=== PATIENT | female | born 1970 | race Caucasian/White ===

== ENCOUNTER 2018-01-04 14:09 | Observation (INO) | payer OTHER, SELFPAY ==
[2018-01-04] MEDS ORDERED: Nitroglycerin 0.4 MG TAB (25 Tab Bottle) ONE (14:50)
[2018-01-04 14:53] LABS: #Basophils 0.1 thou/uL (0.0-0.2); #Eosinphils 0.1 thou/uL (0.0-0.7); #Lymphocytes 3.4 thou/uL (1.20-3.40); #Monocytes 0.4 thou/uL (0.11-0.59); #Neutrophils 4.6 thou/uL (1.40-6.50); %Basophils 1.3 % (0.0-1.0); %Eosinophils 1.4 % (0.0-10.0); %Lymphocytes 39.4 % (21.0-51.0); %Monocytes 4.8 % (0.0-10.0); %Neutrophils 53.1 % (42.0-75.0); Hemoglobin 14.5 g/dL (12.0-16.0); Mean Corpuscular HGB CONC 33.6 g/dL (32.0-36.0); Mean Corpuscular Volume 89.2 fl (81.0-99.0); Mean Platelet Volume 8.1 fL (7.4-10.4); Platelet Count 247 thou/uL (130-400); RBC Distribution Width 10.8 % (11.5-14.5); Red Blood Cell (RBC) Count 4.84 mill/uL (4.20-5.40); White Blood Cell (WBC) Count 8.7 thou/uL (4.8-10.8)
[2018-01-04 14:56] LABS: Prothrombin Time 13.4 SEC (12.0-14.7)
[2018-01-04 14:58] LABS: D-Dimer Test Less than 0.27 *mcg/mL (0.27-0.43)
[2018-01-04 15:06] LABS: ALT (SGPT) 37 U/L (8-55); AST (SGOT) 28 U/L (5-34); Albumin 3.7 g/dL (3.5-5.0); Alkaline Phosphatase 75 U/L (40-150); Anion Gap 17 mmol/L (10-20); BUN (Urea Nitrogen) 15 mg/dL (7.0-18.7); Bilirubin, Total 0.6 mg/dL (0.2-1.2); Calc. Creatinine Clearance 0 mL/min (70-130); Calcium 9.3 mg/dL (7.8-10.44); Carbon Dioxide 21 mmol/L (22-29); Chloride 104 mmol/L (98-107); Estimated GFR-MDRD 64; Globulin 4.1 g/dL (2.4-3.5); Glucose 210 mg/dL (70-105); Potassium 4.2 mmol/L (3.5-5.1); Protein, Total 7.8 g/dL (6.0-8.3); Sodium 138 mmol/L (136-145)
[2018-01-04 15:07] LABS: CKMB 1.2 ng/mL (0-6.6); Troponin I Less than 0.010 ng/mL (< 0.028)
--- NOTE | 2018-01-04 15:11 | RAD ---
PORTABLE AP CHEST X-RAY: 01/04/2018 HISTORY: Chest pain. COMPARISON: 07/10/2015 FINDINGS: The cardiac silhouette and pulmonary vasculature are within normal limits. The lungs are clear. The re has been no interval change from prior exam. IMPRESSION: No acute cardiopulmonary process. POS: [facility]
[2018-01-04] MEDS ORDERED: Ondansetron ODT 4 MG TAB SL PRN (17:11)
[2018-01-04] MEDS ORDERED: Acetaminophen 325 MG TAB PO PRN ×2 (17:11→19:41)
[2018-01-04] MEDS ORDERED: Ondansetron HCl/PF 4 MG/2 ML Vial IVP PRN ×2 (17:11→19:41)
[2018-01-04 17:52] VITALS: BMI 32.1
--- NOTE | 2018-01-04 18:44 | PDOC.FPRHP ---
- History of Present Illness Chief Complaint: chest pain History of Present Illness: pt seen @ 1900 47 yo F presents w/ approx 2 day h/o of intermittent centrally located chest pain that is worse with movement and lifting, is pressure like to burning in nature with some associated mild SOB, nausea and occasional palpitations. 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 She has not tried any medications for the pain. She reports tenderness to palpation over left side of sternum. Denies associaded diaphoresis, syncope, increased swelling, fever, chills, sweats, productive cough. Denies recent illness. ED Course: Aspirin 324mg Nitrostat X1 - Allergies/Adverse Reactions Allergies Allergy/AdvReac Type Severity Reaction Status Date / Time No Known Allergies Allergy Verified 01/17/15 15:55 - Home Medications Medication Instructions Recorded Confirmed Type No Known [No Known] 01/04/18 01/04/18 History - History PMHx: HTN PSHx: Tubal ligation, spinal fusion, appendectomy FHx: None Social: Denies tobacco, alcohol and drug use - Review of Systems General: reports: fatigue. denies: fever/chills, weight/appetite/sleep changes Eyes: reports: vision changes. denies: eye pain ENT: denies: nasal congestion, rhinorrhea Respiratory: reports: cough, shortness of breath, exercise intolerance. denies : congestion Cardiovascular: reports: chest pain, palpitation. denies: edema, orthopnea Gastrointestinal: reports: nausea. denies: vomiting, diarrhea, constipation, abdominal pain Genitourinary: denies: dysuria Skin: denies: rashes, lesions Musculoskeletal: denies: pain, tenderness, swelling, arthritis/arthralgias Neurological: reports: weakness. denies: numbness, syncope - Vital signs BP: 184/98 HR: 103 RR: 22 Tmax: 98.3 Pox: 95% on RA Wt: 95Kg - Physical Exam Constitutional: NAD, awake, alert and oriented, well developed HEENT: normocephalic and atraumatic, PERRLA, EOMI, conjunctiva clear, no scleral icterus, grossly normal vision, grossly normal hearing, MMM, oropharynx clear Neck: supple, FROM, trachea midline, no LAD, no JVD, no thyromegaly, no bruits Heart: RRR, normal S1/S2, pulses present, no edema, other (1-2/6 TANK) Lungs: CTAB, no respiratory distress, good air movement, no rales/rhonchi, no wheezing, no retractions Abdomen: soft, non-tender, bowel sounds present, no masses/distention Musculoskeletal: normal structure, normal tone, ROM grossly normal Neurological: no focal deficit Skin: good turgor, capillary refill <2 seconds Psychiatric: normal mood and affect FMR H&P: Results - Labs Result Diagrams: 01/05/18 04:16 01/05/18 04:16 Lab results: WBC 8.7 thou/uL (4.8-10.8) 01/04/18 14:45 Hgb 14.5 g/dL (12.0-16.0) 01/04/18 14:45 Hct 43.2 % (36.0-47.0) 01/04/18 14:45 MCV 89.2 fl (81.0-99.0) 01/04/18 14:45 Plt Count 247 thou/uL (130-400) 01/04/18 14:45 Neutrophils % 53.1 % (42.0-75.0) 01/04/18 14:45 Sodium 138 mmol/L (136-145) 01/04/18 14:45 Potassium 4.2 mmol/L (3.5-5.1) 01/04/18 14:45 Chloride 104 mmol/L (98-107) 01/04/18 14:45 Carbon Dioxide 21 mmol/L (22-29) L 01/04/18 14:45 BUN 15 mg/dL (7.0-18.7) 01/04/18 14:45 Creatinine 0.93 mg/dL (0.6-1.1) 01/04/18 14:45 Glucose 210 mg/dL (70-105) H 01/04/18 14:45 Calcium 9.3 mg/dL (7.8-10.44) 01/04/18 14:45 Total Bilirubin 0.6 mg/dL (0.2-1.2) 01/04/18 14:45 AST 28 U/L (5-34) 01/04/18 14:45 ALT 37 U/L (8-55) 01/04/18 14:45 Alkaline Phosphatase 75 U/L (40-150) 01/04/18 14:45 CK-MB (CK-2) 1.2 ng/mL (0-6.6) 01/04/18 14:45 B-Natriuretic Peptide Less than 10.0 pg/mL (0-100) 01/04/18 14:50 Serum Total Protein 7.8 g/dL (6.0-8.3) 01/04/18 14:45 Albumin 3.7 g/dL (3.5-5.0) 01/04/18 14:45 Laboratory Tests 01/04/18 01/04/18 14:45 14:45 D-Dimer Less than 0.27 L Troponin I Less than 0.010 - EKG Interpretation EKG: No STEMI. Sinus tachycardia. Nonspecific st abnormalities. - Radiology Interpretation Chest x-ray Status: report reviewed by me (No acute disease.) FMR H&P: A/P - Problem List (1) Chest pain Current Visit: No Status: Acute Code(s): R07.9 - CHEST PAIN, UNSPECIFIED (2) Hypertension Current Visit: Yes Status: Suspected Code(s): I10 - ESSENTIAL (PRIMARY) HYPERTENSION (3) Diabetes mellitus type 2 in obese Current Visit: Yes Status: Suspected Code(s): E11.69 - TYPE 2 DIABETES MELLITUS WITH OTHER SPECIFIED COMPLICATION; E66.9 - OBESITY, UNSPECIFIED - Plan 1) Chest pain - typical cp 3/3 ray criteria - Pt had cardiac cath in 2014 which was negative - EKG negative, initial troponin negative - will admit for cp obs - trend troponins X 3 - check TSH, mag, phos, AM FLP - 1-2/6 TANK on PE with CP: will get cardiac echo and cardiac stress - previous h/o htn controlled with lisinopril which was dc'd as pt lost 30 pounds and was diet controlled, elevated pressures recorded in ED, consider restarting anti-htn medication in am, monitor pressures overnight 2) HTN: - see #1 - consider restarting lisinopril 3) DMII, suspected - pt reports she has not eaten anything today and has decreased appetite - random BS 210, will check A1c and treat accordingly Disposition/LOS: stable, </= 2 days. Symptomatic meds will be provided. FMR H&P: Upper Level - Pertinent history Patient is a 47yo CF with PMHx of HTN and previously on Lisinopril who was transferred here from [facility] due to chest pain. She reports that she has had mid-sternum chest pain for the past few days, but today it worsened. Describes it as a tightening pressure with radiation to her LT shoulder and associated with shortness of breath and nausea. CP lasted about 30sec to a min and worsened with exertion and relieved with rest. Given nitro SL with relief of symptoms. States she has had CP before but this felt different. Looking over records, she had a normal stress test on 01/2015 and a normal cath on 07/2015. Of note, she also has CP worsened with deep inspiration and cough but that chest pain is different than what she had earlier. Endorses nausea, slight LARKIN and cough that started yesterday. Denies any fever, chills, congestion, vomiting, weakness, numbness or tingling. Patient has not seen a physician in about 5 yrs due to lack of insurance. - Pertinent findings Gen: no acute distress HEENT: MMM Heart: S1 S2, RRR, TTP at mid-sternum but not reproducible as CP earlier was different Lungs: CTAB Abd: soft, nt/nd/bs+ Ext: no cyanosis or edema - Plan Date/Time: 01/04/181841 Clint Maguire, have evaluated this patient and agree with findings/plan as outlined by internal control analyst resident. Pertinent changes/additions are listed here. 1. Typical chest pain: Place on obs to tele. Initial troponin was negative. Cont to trend q3H. Repeat EKG in AM. Risk stratify with Mg, Phos, TSH and FLP. Cont ASA and nitro prn pain. HEART score of 4. Plan for nuclear stress test in AM. 2. Elevated glucose: no dx of diabetes with last A1c of 6.3% on 07/2015. Obtain A1c. Patient also with metabolic syndrome meeting 4/5 criteria based on lipid panel done in 2014. 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 3. Elev BPs and hx of HTN: previously on Lisinopril 10mg BID. Lost about 30lbs of weight 3yrs ago and was able to stop medication. States however that she has gained all her weight back. Cont to monitor and consider adding Lisinopril if BPs cont to be uncontrolled. 4. Diet: HH/CC and NPO at ID. 5. PPx: SCDs 6. Code Status: Full. Attending Addendum - Attending Addendum Date/Time: 01/05/18 0759 I personally evaluated the patient and discussed the management with Dr. Munoz and Dylan. Seen on 01/04. I agree with the History, Examination, Assessment and Plan documented above with any addition or exceptions noted below. See my event note.
[2018-01-04 18:55] LABS: Troponin I 0.015 ng/mL (< 0.028)
[2018-01-04] MEDS ORDERED: Nitroglycerin 0.4 MG TAB (25 Tab Bottle) PO PRN (19:41)
[2018-01-04] MEDS ORDERED: Ondansetron ODT 4 MG TAB PO PRN (19:41)
[2018-01-04 20:54] LABS: Hemoglobin A1c 7.2 % (4.0-6.0)
--- NOTE | 2018-01-04 20:56 | PDOC.EVN ---
Event Note - Event Note Event Note: Attending note. Pt with 3 day h/o chest pain. Squeezing/tightness, mild-mod, worse with exertion but started at rest on Thursday. Associated nausea, no diaphoresis. Feels somewhat similar to previous episodes but a bit more intense. She is currently chest pain free. No associated numbness or weakness. She has had general fatigue and irritability. Past med/surg/fam hx reviewed. Denies PAOLO. Meds and allergies reviewed A/P: Chest pain -neg cath in 2014 -will stress -consider cards consultation in AM -low suspicion for PE, AD, PTX, other Obesity -counseled diet, exercises H/o HTN -monitor Send for lipid panel, A1c. DVT and GI ppx.
[2018-01-04] MEDS: Famotidine 20 MG TAB PO SCH (20:57)
[2018-01-04] MEDS ORDERED: Lisinopril 10 MG TAB PO SCH (21:00)
[2018-01-04 21:17] LABS: Troponin I Less than 0.010 ng/mL (< 0.028)
[2018-01-05 05:13] LABS: Anion Gap 10 mmol/L (10-20); BUN (Urea Nitrogen) 15 mg/dL (7.0-18.7); Calc. Creatinine Clearance 130 mL/min (70-130); Calcium 8.5 mg/dL (7.8-10.44); Carbon Dioxide 25 mmol/L (22-29); Cardiac Risk 5.5 (Less than 4.5); Chloride 107 mmol/L (98-107); Cholesterol 187 mg/dl (< 200 Desired); Estimated GFR-MDRD 77; Glucose 186 mg/dL (70-105); HDL Cholesterol 34 mg/dL (>60 Neg Risk); LDL Cholesterol, Calculated 123 mg/dL; Phosphorus 3.8 mg/dL (2.3-4.7); Sodium 138 mmol/L (136-145); Triglycerides 149 mg/dL (Less than 150)
[2018-01-05 05:29] LABS: Eosinophils 1 % (0-10); Hemoglobin 12.9 g/dL (12.0-16.0); Lymphocytes 57 % (21-51); MDiff Complete? YES; Mean Corpuscular HGB CONC 32.8 g/dL (32.0-36.0); Mean Corpuscular Hemoglobin 30.4 pg (27.0-31.0); Mean Corpuscular Volume 92.7 fl (81.0-99.0); Mean Platelet Volume 7.2 fL (7.4-10.4); Monocytes 6 % (0-10); Neutrophil 35 % (42-75); PLT Morphology Comment Appears Adequate; Platelet Count 215 thou/uL (130-400); RBC Distribution Width 10.8 % (11.5-14.5); Red Blood Cell (RBC) Count 4.26 mill/uL (4.20-5.40); White Blood Cell (WBC) Count 7.2 thou/uL (4.8-10.8)
--- NOTE | 2018-01-05 08:52 | PDOC.FM ---
- Objective Vital Signs & Weight: Vital Signs (12 hours) Temp Pulse Resp BP BP Pulse Ox 01/05/18 11:28 85 16 141/65 H 95 01/05/18 08:27 97.7 F 72 16 163/77 H 98 01/05/18 08:00 97.7 F 85 16 01/05/18 04:00 98.0 F 71 20 167/83 H 96 Weight Weight 95.708 kg I&O: 01/04/18 01/05/18 01/06/18 06:59 06:59 06:59 Intake Total 385 120 Output Total 400 Balance -15 120 Result Diagrams: 01/05/18 04:16 01/05/18 04:16 <Osiel Krueger - Last Filed: 01/05/18 11:58> - Subjective Subjective: THis morning patient states she slept well overnight. She states she still had 4 /10 squeezing chest pain with exertion overnight. She denies nausea, vomiting, or diaphoresis. She states that occassionally the chest pain comes on at rest but most often is related to exertion. - Objective Vital Signs & Weight: Vital Signs (12 hours) Temp Pulse Resp BP Pulse Ox 01/05/18 04:00 98.0 F 71 20 167/83 H 96 Weight Weight 95.708 kg I&O: 01/04/18 01/05/18 01/06/18 06:59 06:59 06:59 Intake Total 385 Output Total 400 Balance -15 Result Diagrams: 01/05/18 04:16 01/05/18 04:16 <Kareem Bennett - Last Filed: 01/05/18 13:53> - Objective Vital Signs & Weight: Vital Signs (12 hours) Temp Pulse Resp BP BP Pulse Ox 01/05/18 11:28 85 16 141/65 H 95 01/05/18 08:27 97.7 F 72 16 163/77 H 98 01/05/18 08:00 97.7 F 85 16 01/05/18 04:00 98.0 F 71 20 167/83 H 96 Weight Weight 95.708 kg I&O: 01/04/18 01/05/18 01/06/18 06:59 06:59 06:59 Intake Total 385 360 Output Total 400 Balance -15 360 Result Diagrams: 01/05/18 04:16 01/05/18 04:16 <Evangelina Rivero - Last Filed: 01/05/18 14:58> Phys Exam - Physical Examination HEENT: PERRLA, moist MMs Neck: no nodes, full ROM Respiratory: no wheezing, clear to auscultation bilateral Cardiovascular: RRR, no significant murmur Gastrointestinal: soft, non-tender, no distention, positive bowel sounds Musculoskeletal: no edema, pulses present Neurological: non-focal, moves all 4 limbs Psychiatric: normal affect, A&O x 3 Skin: no rash, normal turgor, cap refill <2 seconds <Kareem Bennett - Last Filed: 01/05/18 13:53> Dx/Plan - Plan Plan: Upper Level Addendum: I personally evaluated the patient and discussed it with Dr. Bennett. I agree with his evaluation, assessment, and plan with exceptions as listed below: 1) Typical chest pain - Stress test today. Echo pending. Cardiology consulted as Prinzmetal angina is a consideration <Osiel Krueger - Last Filed: 01/05/18 11:58> (1) Diabetes mellitus type 2 in obese Code(s): E11.69 - TYPE 2 DIABETES MELLITUS WITH OTHER SPECIFIED COMPLICATION; E66.9 - OBESITY, UNSPECIFIED Status: Suspected (2) Hypertension Code(s): I10 - ESSENTIAL (PRIMARY) HYPERTENSION Status: Suspected (3) Chest pain Code(s): R07.9 - CHEST PAIN, UNSPECIFIED Status: Acute - Plan Plan: # Typical chest pain - trops neg-> 0.015 -> neg - Cont ASA, PRN nitro - HEART score 4 in ED - Echo and Nuc stress this AM - Cardiology consulted - consider prizmetal angina, would consider CCB # Elevated glucose - A1C: 7.2 - will plan to add metformin after stress test - 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 Bennett on 01/05/18. I agree with the History, Examination, Assessment and Plan documented above with any addition or exceptions noted below. Patient's CP remains resolved. Stress test done this morning, results pending. If negative, discharge home. <Evangelina Rivero - Last Filed: 01/05/18 14:58>
[2018-01-05 08:53] VITALS: TEMP 97.7
[2018-01-05] MEDS ORDERED: Aspirin 325 MG TAB PO SCH (09:00)
[2018-01-05] MEDS: Famotidine 20 MG TAB PO SCH (11:19)
[2018-01-05 11:29] VITALS: BP 141/65
--- NOTE | 2018-01-05 13:39 | STRESS ---
Acquisition Time: 2018-01-05 09:51:47 Total Exercise Time: 00:07:16 Test Indications: CHEST PAIN Medications: Protocol: MUNA Max HR: 146 BPM 85% of Pred: 171 BPM Max BP: 190/070 mmHG Max Work Load: 10.1 METS THE PATIENT EXERCISED FOR 7:15 ON A MUNA PROTOCOL. PEAK HEART RATE= 146 BPM AND TARGET HEART RATE= 145 BPM. SHE DID DEVELOP CHEST PAIN. THERE WAS NO SIGNIFICANT ST DEPRESSION. NORMAL EXERCISE TREADMILL TEST. AWAIT NUCLEAR IMAGES FOR DEFINITIVE DIAGNOSIS. Confirmed by JEFFERSON LARSEN ([id number]), fan mail editor LUIS ANTONIO CELAYA ([id number]) on 01/05/2018 1:38:51 PM Referred By: MD Quentin AKERS Confirmed By:JEFFERSON LASREN
--- NOTE | 2018-01-05 14:41 | NM ---
MYOCARDIAL PERFUSION EVALUATION: INDICATION: Chest pain. RADIOPHARMACEUTICAL: 31 mCi of Technetium 99m sestamibi IV with stress and 9 mCi of Technetium 99m sestamibi IV with rest. COMPARISON: Prior exam dated 01/18/15. FINDINGS: When comparing the rest and stress images, no reversible myocardial perfusion defect is evident. The re is normal wall motion and thickening with estimated LVEF is 69%. IMPRESSION: 1. No scintigraphic evidence to suggest reversible myocardial ischemia. 2. The estimated left ventricular ejection fraction of 69%. POS: [facility]
--- NOTE | 2018-01-06 06:53 | DIS-2 ---
DATE OF ADMISSION: 01/04/2018 DATE OF DISCHARGE: 01/05/2018 RESIDENT: Kareem Bennett MD ADMITTING ATTENDING: Chivo Clay MD DISCHARGE ATTENDING: Evangelina Rivero DO CONSULTATIONS: None. PROCEDURES: Cardiac stress test, echocardiogram. PRIMARY DIAGNOSIS: Atypical chest pain. SECONDARY DIAGNOSES: 1. Elevated glucose. 2. Hypertension. DISCHARGE MEDICATIONS: Aspirin 325 mg daily, atorvastatin 20 mg daily, lisinopril 5 mg daily, metfor min 500 mg b.i.d. DISCONTINUED MEDICATIONS: None. HISTORY OF PRESENT ILLNESS AND HOSPITAL COURSE: A 47-year-old patient was admitted with 2-day histor y of intermittent centrally located chest pain worsened with moving and lifting. She described the p ain as crushing in nature and was associated with some shortness of breath. She denied any nausea, v omiting, or diaphoresis. She states that the pain was relieved by nitroglycerin. She had not tried any medications prior to coming to the ED. She reported tenderness to palpation over the left side o f the sternum. Denies recent illness. Cardiac stress test and echocardiogram were both unremarkable. Troponins were trended x3 and were ne gative. It was determined that this chest pain was not cardiac in nature and she could be discharged for further outpatient workup. DISPOSITION: Stable. DISCHARGE INSTRUCTIONS: 1. Location: Home. 2. Diet: Regular. 3. Activity: As tolerated. 4. Followup: Follow up with Dr. Kareem Bennett in clinic within 1 week.
== END 2018-01-05 16:33 | disposition home or self-care (01) ==
LOC: SCSER 14:09 → 2SW 15:36
PROVIDERS: ADMIT Family Medicine; ATTEND Family Medicine
DX: R07.89 Other chest pain (principal); R73.09 Other abnormal glucose; I10 Essential (primary) hypertension; E66.9 Obesity, unspecified; Z68.32 Body mass index [BMI] 32.0-32.9, adult; Z98.51 Tubal ligation status; Z98.1 Arthrodesis status; Z90.49 Acquired absence of other specified parts of digestive tract
CPT/HCPCS: 36415; 71045; 78452; 80048; 80053; 80061; 82553; 83036; 83735; 83880; 84100; 84443; 84484; 85025; 85379; 85610; 93005; 93017; 93306; 96360; 96361; A4216; A9500; G0378

== ENCOUNTER 2018-03-16 15:56 | Outpatient (CLI) | payer OTHER | END 2018-03-16 15:57 | disposition home or self-care (01) | LOC: BICMAMMO 15:56 | PROVIDERS: ATTEND Family Medicine | DX: Z12.31 Encounter for screening mammogram for malignant neoplasm of breast (principal) | CPT/HCPCS: 77063; 77067 ==

== ENCOUNTER 2018-08-04 17:49 | Emergency (ER) | payer OTHER ==
--- NOTE | 2018-08-04 19:46 | RAD ---
THREE VIEWS RIGHT ANKLE: 08/04/18 HISTORY: Right ankle injury. FINDINGS: The ankle mortise is congruent. There is no evidence of a fracture or dislocation. Posterior and plan tar calcaneal enthesophytes are seen. There is questionable thickening of the most distal Achilles te ndon, but this is nonspecific based on plain film evaluation. If there is concern for injury of the A chilles tendon, MRI would be a more sensitive study of choice on a nonemergent basis. IMPRESSION: No acute osseous abnormality. POS: [facility]
== END 2018-08-04 18:52 | disposition home or self-care (01) ==
LOC: SCSER 17:49
DX: S93.401A Sprain of unspecified ligament of right ankle, initial encounter (principal); I10 Essential (primary) hypertension; E78.00 Pure hypercholesterolemia, unspecified; Z79.84 Long term (current) use of oral hypoglycemic drugs; Z79.82 Long term (current) use of aspirin; Z79.899 Other long term (current) drug therapy; V09.20XA Pedestrian injured in traffic accident involving unspecified motor vehicles, initial encounter

== ENCOUNTER 2019-01-18 08:22 | Emergency (ER) | payer OTHER ==
[2019-01-18] MEDS ORDERED: Iopamidol 370 76% 100 ML VIAL ONE (09:00)
[2019-01-18] MEDS ORDERED: diphenhydrAMINE 50 MG/ML VIAL ONE (09:10)
[2019-01-18] MEDS ORDERED: Meclizine HCl 25 MG TAB ONE (09:10)
[2019-01-18] MEDS ORDERED: Metoclopramide HCl 10 MG/2 ML VIAL ONE (09:10)
[2019-01-18 09:18] LABS: Hemoglobin 14.5 g/dL (12.0-16.0); Mean Corpuscular HGB CONC 32.5 g/dL (32.0-36.0); Mean Corpuscular Hemoglobin 29.8 pg (27.0-31.0); Mean Corpuscular Volume 91.7 fL (78.0-98.0); Mean Platelet Volume 7.2 fL (7.4-10.4); Platelet Count 240 thou/uL (130-400); Red Blood Cell (RBC) Count 4.87 mill/uL (4.20-5.40); White Blood Cell (WBC) Count 6.6 thou/uL (4.8-10.8)
[2019-01-18 09:19] LABS: PTT 24.6 SEC (22.9-36.1); Prothrombin Time 13.1 SEC (12.0-14.7)
[2019-01-18 09:22] LABS: ALT (SGPT) 19 U/L (8-55); AST (SGOT) 17 U/L (5-34); Albumin 3.8 g/dL (3.5-5.0); Alkaline Phosphatase 71 U/L (40-150); Anion Gap 12 mmol/L (10-20); BUN (Urea Nitrogen) 14 mg/dL (7.0-18.7); Bilirubin, Total 0.9 mg/dL (0.2-1.2); Calc. Creatinine Clearance 0 mL/min (70-130); Carbon Dioxide 26 mmol/L (22-29); Chloride 105 mmol/L (98-107); Estimated GFR-MDRD 67; Globulin 3.7 g/dL (2.4-3.5); Glucose 167 mg/dL (70-105); Protein, Total 7.5 g/dL (6.0-8.3); Sodium 139 mmol/L (136-145)
[2019-01-18 09:31] LABS: Eosinophils 2 % (0-10); Lymphocytes 53 % (21-51); MDiff Complete? YES; Monocytes 7 % (0-10); Neutrophil 36 % (42-75); Platelet Morphology Comment Appears Adequate; RBC Morphology Normal
[2019-01-18] MEDS ORDERED: Aspirin Chewable 81 MG TAB ONE (10:32)
--- NOTE | 2019-01-18 10:41 | CT ---
CT OF THE BRAIN WITHOUT CONTRAST: Date: 01/18/19 INDICATION: 48-year-old female with headache and head spinning. COMPARISON: None. FINDINGS: No acute infarct, hemorrhage, or hydrocephalus is present. Septum pellucidum and third ventricle are midline. Mastoid air cells are clear. Paranasal sinuses are clear. Skull is intact. Extracranial soft tissues are normal appearing. IMPRESSION: No acute intracranial abnormality. POS: [facility]
[2019-01-18 11:07] LABS: Bilirubin Negative (Negative); Blood, Urine Negative (Negative); Glucose, Urine (Dipstick) Negative (Negative); Leukocyte Small (Negative); Nitrite Negative (Negative); Protein, Urine (Dipstick) Negative (Neg-Trace); Specific Gravity, Urine 1.015 (1.005-1.030); Urobilinogen 0.2 mg/dL (0.2-1.0)
[2019-01-18 11:11] LABS: Clarity Slightly Cloudy (Clear)
[2019-01-18 11:20] LABS: Bacteria/HPF Rare-Few HPF (None Seen); Hyaline Casts/LPF NONE SEEN LPF (0-3 Hyaline); RBC/HPF 0-3 HPF (0-3); Squamous Epithelial 0-3 HPF (0-3); WBC/HPF 0-3 HPF (0-3)
--- NOTE | 2019-01-18 12:16 | CT ---
CT ANGIOGRAM HEAD WITHOUT CONTRAST: Date: 01/18/19 HISTORY: Dizziness. COMPARISON: CT brain without contrast same date. FINDINGS: CT angiogram of the head was performed after the intravenous administration of contrast. 3D rendering was provided. [place] is patent. No aneurysm formation, thrombosis, or stenosis. No abnormal enhancing mas s. The dural venous sinuses are patent. IMPRESSION: Normal CT angiogram of head. No stenosis, thrombosis, nor aneurysm formation. POS: [facility]
--- NOTE | 2019-01-18 12:18 | CT ---
CT ANGIOGRAM NECK WITH CONTRAST: Date: 01/18/19 HISTORY: Head pain. Headache. COMPARISON: CT brain without contrast same date. TECHNIQUE: CT angiogram of neck performed after the intravenous administration of contrast. 3D rendering provide d. FINDINGS: The lung apices are clear. No cervical adenopathy. The thyroid is unremarkable. The vertebral arteries are codominant. No contour abnormality of the lori tebral arteries. No evidence of dissection. The origins of the vertebral arteries are patent. Origins of both common carotid arteries are patent. No hemodynamically significant stenosis per NASCE T criteria. Mild degenerative disc space disease C5-6 and C6-7. IMPRESSION: Normal CT angiogram of neck. POS: [facility]
[2019-01-18] MEDS ORDERED: Ketorolac Tromethamine 30 MG/ML VIAL ONE (13:09)
== END 2019-01-18 16:00 | disposition home or self-care (01) ==
LOC: SCSER 08:22
DX: H81.399 Other peripheral vertigo, unspecified ear (principal); E78.5 Hyperlipidemia, unspecified; I10 Essential (primary) hypertension; R73.03 Prediabetes; Z79.899 Other long term (current) drug therapy; Z79.84 Long term (current) use of oral hypoglycemic drugs
CPT/HCPCS: 70450; 70496; 70498; 80053; 81003; 81015; 85025; 85610; 85730; 93005; 96365; 96375; J1200; J1885; J2765; Q9967

== ENCOUNTER 2024-05-27 10:23 | Outpatient (CLI) | payer OTHER | END 2024-05-27 10:24 | disposition home or self-care (01) | LOC: MRI 10:23 | PROVIDERS: ATTEND Hospitalist | DX: R51.9 Headache, unspecified (principal); I67.89 Other cerebrovascular disease | CPT/HCPCS: 70551 ==

== ENCOUNTER 2024-09-06 12:23 | Outpatient (CLI) | payer OTHER | END 2024-09-06 12:24 | disposition home or self-care (01) | LOC: BICMAMMO 12:23 | PROVIDERS: ATTEND Family Medicine | DX: Z12.31 Encounter for screening mammogram for malignant neoplasm of breast (principal) | CPT/HCPCS: 77063; 77067 ==